=== PATIENT | male | born 1930 | race Caucasian/White ===

== ENCOUNTER 2019-05-11 22:20 | Emergency (ER) | payer OTHER ==
[~2019-05-11] VITALS: Ht 180.3 cm; Wt 90.7 kg
[2019-05-11 22:30] VITALS: Ht 180.3 cm; Wt 90.7 kg
[2019-05-11 23:15] LABS: PLATELET COUNT 162 x10^3mcL (130-400)
[2019-05-11 23:25] LABS: CALCIUM 8.2 mg/dL (8.5-10.1); CARBON DIOXIDE 26.5 mmol/L (21-32); CHLORIDE SERUM 111 mmol/L (98-107); CREATININE SERUM 1.2 mg/dL (0.7-1.3); GLUCOSE SERUM 125 mg/dL (74-106); SODIUM SERUM 144 mmol/L (136-145)
[2019-05-11 23:26] LABS: RED CELL DISTRIBUTION WIDTH 16.2 % (11.5-14.5)
[2019-05-11 23:30] LABS: ALKALINE PHOSPHATASE 129 U/L (46-116); ALT/SGPT 67 U/L (16-63); AST/SGOT 59 U/L (15-37); BILIRUBIN TOTAL 0.4 mg/dL (0.20-1.00); TOTAL PROTEIN, SERUM 6.6 g/dL (6.4-8.2)
[2019-05-11 23:36] LABS: ALBUMIN 2.4 g/dL (3.4-5.0); CHOLESTEROL 61 mg/dL (<200); HDL CHOLESTEROL 30 mg/dL (40-60)
[2019-05-12 05:02] LABS: microscopic required? YES; urine erythrocyte 1+ (NEGATIVE)
[2019-05-12 06:50] VITALS: BP 164/94
== END 2019-05-12 06:58 | disposition home or self-care (01) ==
LOC: ED 22:20
PROVIDERS: Emergency Medicine
DX: E11.649 Type 2 diabetes mellitus with hypoglycemia without coma (principal); R41.82 Altered mental status, unspecified; I48.2 Chronic atrial fibrillation; F03.90 Unspecified dementia, unspecified severity, without behavioral disturbance, psychotic disturbance, mood disturbance, and anxiety; I10 Essential (primary) hypertension; Z98.890 Other specified postprocedural states
CPT/HCPCS: 36415; 82962; Q0092

== ENCOUNTER 2019-09-07 14:14 | Emergency (ER) | payer OTHER ==
[~2019-09-07] VITALS: Ht 177.8 cm; Wt 84.4 kg
[2019-09-07 14:19] VITALS: Ht 177.8 cm; Wt 84.4 kg
[2019-09-07 17:07] LABS: BASOPHIL % 0.5 % (0-2); PLATELET COUNT 210 x10^3mcL (130-400)
[2019-09-07 17:13] LABS: CHLORIDE SERUM 106 mmol/L (98-107); CREATININE SERUM 1.3 mg/dL (0.7-1.3); GLUCOSE SERUM 103 mg/dL (74-106); POTASSIUM SERUM 4.8 mmol/L (3.5-5.1); SODIUM SERUM 143 mmol/L (136-145)
[2019-09-07 17:19] LABS: ALBUMIN 2.5 g/dL (3.4-5.0); ALKALINE PHOSPHATASE 164 U/L (46-116); ALT/SGPT 36 U/L (16-63); AST/SGOT 34 U/L (15-37); BILIRUBIN DIRECT 0.22 mg/dL (0.0-0.2); BILIRUBIN TOTAL 0.5 mg/dL (0.20-1.00); LIPASE 16 IU/L (73-393); RED CELL DISTRIBUTION WIDTH 16.7 % (11.5-14.5); TOTAL PROTEIN, SERUM 7.5 g/dL (6.4-8.2)
[2019-09-07 18:16] VITALS: BP 137/71
== END 2019-09-07 18:16 | disposition home or self-care (01) ==
LOC: ED 14:14
PROVIDERS: Emergency Medicine
DX: S46.001A Unspecified injury of muscle(s) and tendon(s) of the rotator cuff of right shoulder, initial encounter (principal); I10 Essential (primary) hypertension; E11.9 Type 2 diabetes mellitus without complications; I48.91 Unspecified atrial fibrillation; Z98.890 Other specified postprocedural states; X58.XXXA Exposure to other specified factors, initial encounter; Y93.89 Activity, other specified; Y92.89 Other specified places as the place of occurrence of the external cause; Y99.8 Other external cause status
CPT/HCPCS: 36415

== ENCOUNTER 2019-09-18 17:23 | Inpatient (IN) | payer OTHER ==
[~2019-09-18] VITALS: Ht 175.3 cm; Wt 99.8 kg
[2019-09-18 17:33] VITALS: Ht 175.3 cm; Wt 99.8 kg
[2019-09-18 17:55] LABS: BASOPHIL % 0.7 % (0-2); PLATELET COUNT 166 x10^3mcL (130-400); RED CELL DISTRIBUTION WIDTH 16.1 % (11.5-14.5)
[2019-09-18 18:05] LABS: CALCIUM 7.7 mg/dL (8.5-10.1); CHLORIDE SERUM 108 mmol/L (98-107); CREATININE SERUM 1.2 mg/dL (0.7-1.3); GLUCOSE SERUM 136 mg/dL (74-106); POTASSIUM SERUM 4.6 mmol/L (3.5-5.1); SODIUM SERUM 141 mmol/L (136-145)
[2019-09-18 18:09] LABS: ALKALINE PHOSPHATASE 144 U/L (46-116); ALT/SGPT 45 U/L (16-63); AST/SGOT 52 U/L (15-37); BILIRUBIN TOTAL 0.31 mg/dL (0.20-1.00); MAGNESIUM 1.9 mg/dL (1.8-2.4); PHOSPHOROUS 3.6 mg/dL (2.5-4.9); TOTAL PROTEIN, SERUM 6.7 g/dL (6.4-8.2)
[2019-09-18 18:10] LABS: ALBUMIN 2.2 g/dL (3.4-5.0); CHOLESTEROL 72 mg/dL (<200); HDL CHOLESTEROL 32 mg/dL (40-60)
[2019-09-18 19:28] LABS: UA SPECIFIC GRAVITY >=1.030 (1.005-1.035); microscopic required? YES; urine erythrocyte TRACE (NEGATIVE)
[2019-09-18] MEDS ORDERED: PROINH INH (19:42)
[2019-09-18] MEDS ORDERED: ALLEGRA ALLERG180 M1 PO (19:43)
[2019-09-18] MEDS ORDERED: AMIODARONE200 MG PO (19:44)
[2019-09-18] MEDS ORDERED: ASPIRIN ADULT L81 M3 (19:45)
[2019-09-18] MEDS ORDERED: LIPI20 PO (19:45)
[2019-09-18] MEDS ORDERED: CARVEDILOL6.25 M1 PO (19:46)
[2019-09-18] MEDS ORDERED: NEURONTIN400 MG PO (19:47)
[2019-09-18] MEDS ORDERED: FUROSEMIDE40 MG PO (19:47)
[2019-09-18] MEDS ORDERED: GLIMEPIRIDE1 M1 PO (19:49)
[2019-09-18] MEDS ORDERED: JANUVIA100 M1 PO (19:49)
[2019-09-18] MEDS ORDERED: DIG125 PO (19:50)
[2019-09-18] MEDS ORDERED: LANTUS SOLOS100 U/M1 SC (19:51)
[2019-09-18] MEDS ORDERED: ZESTRIL20 MG PO (19:52)
[2019-09-18] MEDS ORDERED: PULMICORT180 MCG/Ac INH (19:53)
[2019-09-18] MEDS ORDERED: KLOR-CON M2020 MEQ PO (19:53)
[2019-09-18] MEDS ORDERED: QVAR REDIHALE10.6 G1 (19:55)
[2019-09-18] MEDS ORDERED: XARELTO10 M1 PO (19:56)
[2019-09-18] MEDS ORDERED: APAP500 MG PO (19:58)
[2019-09-18] MEDS ORDERED: GERI-LANTA355 ML PO (20:00)
[2019-09-18] MEDS ORDERED: LOPERAMIDE HCL2 MG PO ×2 (20:01→20:02)
[2019-09-18] MEDS ORDERED: MOM PO (20:03)
[2019-09-18] MEDS ORDERED: PROMETHAZI6.25 MG/5 PO (20:04)
[2019-09-18] MEDS ORDERED: QVAR INH (20:06)
[2019-09-18 21:09] LABS: AMPHETAMINE QUAL UR NONE DETECTED (See below)
[2019-09-18 22:31] VITALS: BP 164/65
[2019-09-19 05:11] VITALS: BP 164/83
[2019-09-19 06:26] LABS: BASOPHIL % 0.8 % (0-2); PLATELET COUNT 195 x10^3mcL (130-400)
[2019-09-19 06:43] LABS: CALCIUM 7.7 mg/dL (8.5-10.1); CARBON DIOXIDE 29.7 mmol/L (21-32); CHLORIDE SERUM 111 mmol/L (98-107); CREATININE SERUM 1.3 mg/dL (0.7-1.3); GLUCOSE SERUM 127 mg/dL (74-106); MAGNESIUM 1.8 mg/dL (1.8-2.4); PHOSPHOROUS 3.5 mg/dL (2.5-4.9); POTASSIUM SERUM 5.2 mmol/L (3.5-5.1); SODIUM SERUM 143 mmol/L (136-145)
[2019-09-19 06:47] LABS: RED CELL DISTRIBUTION WIDTH 16.8 % (11.5-14.5)
[2019-09-19 07:51] VITALS: BP 169/82
[2019-09-19] MEDS ORDERED: AMA1 PO (10:39)
[2019-09-19 12:38] VITALS: BP 121/70
[2019-09-19 17:10] VITALS: BP 155/70
[2019-09-19 20:57] VITALS: BP 133/79
[2019-09-20 06:30] LABS: PLATELET COUNT 181 x10^3mcL (130-400)
[2019-09-20 06:41] LABS: CALCIUM 7.7 mg/dL (8.5-10.1); CARBON DIOXIDE 29.2 mmol/L (21-32); CHLORIDE SERUM 110 mmol/L (98-107); CREATININE SERUM 1.3 mg/dL (0.7-1.3); GLUCOSE SERUM 132 mg/dL (74-106); POTASSIUM SERUM 4.4 mmol/L (3.5-5.1); SODIUM SERUM 143 mmol/L (136-145)
[2019-09-20 08:07] LABS: RED CELL DISTRIBUTION WIDTH 16.8 % (11.5-14.5)
[2019-09-20 08:18] VITALS: BP 160/77
[2019-09-20 11:57] VITALS: BP 141/66
[2019-09-20 18:13] VITALS: BP 147/85
[2019-09-20 19:59] VITALS: BP 162/73
[2019-09-21 04:18] VITALS: BP 168/84
[2019-09-21 07:18] LABS: PLATELET COUNT 195 x10^3mcL (130-400)
[2019-09-21 07:48] LABS: RED CELL DISTRIBUTION WIDTH 16.7 % (11.5-14.5)
[2019-09-21 07:50] LABS: CALCIUM 8.1 mg/dL (8.5-10.1); CARBON DIOXIDE 26.4 mmol/L (21-32); CHLORIDE SERUM 108 mmol/L (98-107); CREATININE SERUM 1.1 mg/dL (0.7-1.3); GLUCOSE SERUM 99 mg/dL (74-106); POTASSIUM SERUM 4.2 mmol/L (3.5-5.1); SODIUM SERUM 141 mmol/L (136-145)
[2019-09-21 08:43] VITALS: BP 148/80
[2019-09-21 11:58] VITALS: BP 134/68
[2019-09-21 13:26] VITALS: BP 134/68
[2019-09-21 16:33] VITALS: BP 154/60
== END 2019-09-21 19:05 | DRG 637 ==
LOC: ED 17:23 → DU 20:03
PROVIDERS: Emergency Medicine; ADMIT Internal Medicine
DX: E11.649 Type 2 diabetes mellitus with hypoglycemia without coma (principal); G93.41 Metabolic encephalopathy; E11.65 Type 2 diabetes mellitus with hyperglycemia; I48.91 Unspecified atrial fibrillation; D64.9 Anemia, unspecified; I10 Essential (primary) hypertension; Z79.82 Long term (current) use of aspirin; Z79.4 Long term (current) use of insulin; Z68.29 Body mass index [BMI] 29.0-29.9, adult; Z79.01 Long term (current) use of anticoagulants
CPT/HCPCS: 82962; 90658; 90732; 97116-GP; 97530-GP; G0378; J1815; J7030; Q0092